=== PATIENT | female | born 1985 | race Caucasian/White ===

== ENCOUNTER 2021-07-01 19:38 | Emergency (ER) | payer OTHER, SELFPAY ==
[2021-07-01 19:39] VITALS: BP 119/73; PULSE 95; RESP 23; TEMP 36.2; O2SAT 99; BMI 42.6
--- NOTE | 2021-07-01 20:25 | RAD_ITS ---
STUDY: X-RAY CHEST REASON FOR EXAM: Female, 36 years old. syncope TECHNIQUE: AP COMPARISON: None. FINDINGS: No airspace consolidation. Attenuation lung bases likely due to overlying soft tissue artifact. There is no demonstrated pleural abnormality. Normal size heart. Normal mediastinum and halima. Normal visualized pulmonary arteries. Normal visualized aortic arch and descending thoracic aorta. Normal visualized thoracic spine. Normal visualized ribs, clavicles, and shoulders. There is no demonstrated abnormality of the visualized soft tissue structures of the upper abdomen. RAD/Chest 1 View (Portable) IMPRESSION: No airspace consolidation or pleural effusion. Electronically Signed: Tony Owen MD ([place]) at 20:43 EDT , Service support ,
--- NOTE | 2021-07-01 20:31 | EDS_ITS ---
HPI History of Present Illness Chief Complaint: Syncope Informant: patient and spouse/S.O. Narrative Narrative: 36-year-old female states that she was at a wedding hotel receptionist tonight when she sustained a syncopal episode. She tells me that she has not really had anything to eat or drink since around 9:30 in the morning. She was in the bridal democrat did not have any difficulties during the ceremony. She states that she was going up to get dinner when she stopped to talk somebody for about 10 minutes she states that her legs were straight. She began to get hot and have tunnel vision and reportedly was passed out for 10 to 15 seconds. It was noted that she was pale. She denies any chest pains or palpitations prior to the event. She states that she has had syncope many years ago. She states she has returned to baseline and has no current symptoms. [facility] Medical History Depression Home Medications [id number] [ + Iron] 1 tab PO DAILY 07/01/21 [History Last Taken Unknown] sertraline [Zoloft] 50 mg PO DAILY 07/01/21 [History Last Taken Unknown] Allergy/AdvReac Type Severity Reaction Status Date / Time No Known Allergies Allergy Verified 07/01/21 19:43 Surgical History History of cholecystectomy Social History (Updated 07/01/21 @ 20:[address] Mu Daniel DO) Smoking Status: Never smoker substance use type: does not use ROS ROS ED Constitutional Constitutional ED: Denies chills or weight loss Eyes Eyes: Denies change in vision or diplopia ENT ENT ED: Denies ear pain, rhinorrhea or sore throat Cardiovascular Cardiovascular: Reports other Details: Syncope ; Denies chest pain, orthopnea, palpitations or racing heartbeat Respiratory/Chest Respiratory/Chest: Denies cough, dyspnea or orthopnea Gastrointestinal Gastrointestinal: Denies abdominal pain, diarrhea, nausea or vomiting Genitourinary Genitourinary ED: Denies dysuria, hematuria or urinary frequency Musculoskeletal Musculoskeletal: Denies arthralgias or myalgias Integumentary Denies abscess or rash Neurologic Neurologic: Denies headache(s) or weakness Psychiatric Psychiatric: Denies anxiety, depression, suicidal ideation or suicidal thoughts Endocrine Endocrinology: Denies polydipsia, polyphagia or polyuria Allergic/Immunologic Allergic/Immunologic ED: Denies mouth swelling, tongue swelling or urticaria EXAM Physical Exam Const Vital Signs: 07/01/21 19:39 07/01/21 19:44 Temperature 97.1 F L Temperature Source Temporal Pulse Rate 95 Respiratory Rate 23 H Respiratory Effort Normal Non-Labored Respiratory Pattern Normal Blood Pressure 119/73 Blood Pressure Mean 88 Pulse Ox 99 Oxygen Delivery Method Room Air Positive well nourished and well developed General Appearance ED: well developed HEENT Reports normocephalic, head/scalp atraumatic and moist mucous membranes Eyes PERRL and EOMs intact bilaterally Neck no lymphadenopathy, supple and no JVD Resp normal respiratory effort and clear to auscultation bilaterally Cardio regular rate, regular rhythm and no murmurs GI normal to inspection, nondistended, normoactive bowel sounds and non-tender Palpation: soft Back/Spine no CVA tenderness and normal ROM Extremity normal to inspection General Extremety ED: Negative for edema General Extremity: Negative for edema Neuro oriented x3 and CN's II-XII intact bilaterally Sensorium / Orientation: alert Motor Exam: strength 5/5 throughout Psych mental status grossly normal Mood & Affect: Negative for depressed or tearful Skin no rashes or lesions noted and no wounds MDM MDM MDM Narrative Medical decision making narrative: Patient's had no events on the monitor. Her EKG is a normal sinus rhythm. My interpretation of the plain film of the chest is normal mediastinal silhouette no acute process. I think the patient is safe for discharge. We will have her follow-up with primary care as needed EKG Initial EKG: Attestation: I personally reviewed and interpreted this EKG as follows: Comments: Normal sinus rhythm with a ventricular rate of 87 bpm. No preexcitation or QT prolongation noted Discharge Plan Triage Chief Complaint: Syncope ED Provider: Mu Daniel Dx/Rx/DC Orders Clinical Impression: Syncope and collapse Instructions: Causes of Syncope Prescriptions: No Action + Iron 1 mg Tablet 1 tab PO DAILY RF: 0 sertraline [Zoloft] 50 mg Tablet 50 mg PO DAILY RF: 0 Primary Care Provider: Care Physician,No Primary Referrals: Care Physician,No Primary [Primary Care Provider] - Activity Restrictions/Additional Instructions: Follow-up with primary care as needed return if worsening or concerns Disposition Disposition: Home, Self Care
[2021-07-01 20:45] VITALS: BP 118/82; PULSE 101; RESP 16; O2SAT 97
== END 2021-07-01 20:46 | disposition home or self-care (01) ==
PROVIDERS: Emergency Provider Emergency Medicine
DX: R55 Syncope and collapse (principal); F32.A Depression, unspecified; Z79.899 Other long term (current) drug therapy
CPT/HCPCS: 71045; 93005; 99285